=== PATIENT | female | born 2005 | race Hispanic/Latino ===

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

== ENCOUNTER 2024-08-04 18:11 | Emergency (ER) | payer SELFPAY ==
[~2024-08-04] VITALS: Ht 154.9 cm; Wt 101.6 kg
[~2024-08-04 18:11] MED LIST changes: +CEFDINIR300 MG PO; +IBUPROFEN200 MG PO; +ONDANSETRON ODT4 MG PO; +THERAFLU FLU &1 EAC1 PO
[2024-08-04 18:24] VITALS: PULSE 79; RESP 18; TEMP 98.5
[2024-08-04] MEDS ORDERED: POLYTRIM OS (19:18)
[2024-08-04 19:30] VITALS: BP 118/66; O2SAT 99
== END 2024-08-04 19:30 | disposition home or self-care (01) ==
LOC: FSED 18:25
DX: H10.9 Unspecified conjunctivitis (principal); H57.12 Ocular pain, left eye; R09.89 Other specified symptoms and signs involving the circulatory and respiratory systems
CPT/HCPCS: 99283